=== PATIENT | male | born 1980 ===

== ENCOUNTER 2017-11-08 17:21 | Emergency (ER) | payer OTHER ==
[2017-11-08 17:21] VITALS: BMI 24.5
[2017-11-08 17:45] VITALS: BP 131/74; PULSE 63; RESP 18; TEMP 98.4; O2SAT 100
[2017-11-08] MEDS ORDERED: Bacitracin 500 Units/gm Oint Foilpak UD TOP ONE (18:00)
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
[2017-11-08] MEDS ORDERED: Bacitracin 500 Units/gm Oint Foilpak UD ONE (18:39)
== END 2017-11-08 18:44 | disposition home or self-care (01) ==
LOC: C.ER 17:21
DX: Z04.1 Encounter for examination and observation following transport accident (principal); V13.4XXA Pedal cycle driver injured in collision with car, pick-up truck or van in traffic accident, initial encounter; Y93.55 Activity, bike riding